=== PATIENT | female | born 1985 | race African-American/Black ===

== ENCOUNTER 2017-04-26 18:09 | Emergency (ER) | payer BC, MEDICAID ==
[~2017-04-26] VITALS: Ht 160 cm; Wt 72.0 kg
[2017-04-26 19:18] LABS: BASOPHILS % 1.7 % (0.0-2.0); EOSINOPHILS % 4.5 % (0.0-5.0); HEMATOCRIT. 34.6 % (36.0-48.0); HEMOGLOBIN. 11.6 g/dL (12.0-16.0); LYMPHOCYTES % 54.2 % (20.0-50.0); MEAN CORPUSCULAR HEMOGLOBIN 31.6 pg (28.0-32.0); MEAN CORPUSCULAR VOLUME 94.7 fL (81.0-99.0); MEAN PLATELET VOLUME 8.9 fl (7.4-10.4); MONOCYTES % 10.2 % (2.0-8.0); NEUTROPHILS % 29.4 % (40.0-76.0); PLATELET 269 x1000/uL (130-400); RED BLOOD CELL COUNT 3.66 mill/uL (4.2-5.4); RED CELL DISTRIBUTION WIDTH 12.6 % (11.6-14.6)
[2017-04-26 19:28] LABS: CLARITY URINE CLEAR (CLEAR); COLOR URINE DARK YELLOW (YELLOW); GLUCOSE URINE NEGATIVE (NEGATIVE); KETONES URINE TRACE (NEGATIVE); LEUKOCYTE ESTERASE URINE 1+ (NEGATIVE); NITRITE URINE NEGATIVE (NEGATIVE); OCCULT BLOOD URINE 2+ (NEGATIVE); PROTEIN URINE NEGATIVE (NEGATIVE); SPECIFIC GRAVITY URINE 1.019 (1.005-1.030)
[2017-04-26 19:30] LABS: CARBON DIOXIDE 26 mEq/L (21-32); CHLORIDE 110 mEq/L (98-107)
[2017-04-26 19:32] LABS: HCG SCREEN NEGATIVE
[2017-04-26] MEDS ORDERED: KETOROLAC 30MG/ML VIAL IM ONE (19:45)
[2017-04-26] MEDS ORDERED: KETOROLAC 30MG/ML VIAL IM NR (20:45)
[2017-04-26 22:46] VITALS: BP 114/50
== END 2017-04-26 22:51 | disposition home or self-care (01) ==
LOC: ER 19:45
DX: K80.20 Calculus of gallbladder without cholecystitis without obstruction (principal); R03.0 Elevated blood-pressure reading, without diagnosis of hypertension; F17.210 Nicotine dependence, cigarettes, uncomplicated; F12.90 Cannabis use, unspecified, uncomplicated; Z88.0 Allergy status to penicillin
CPT/HCPCS: 36415; 76700; 80053; 81001; 83690; 84703; 85025; 87077; 87086; 87186; 96372; 99285; J1885

== ENCOUNTER 2017-04-27 20:22 | Emergency (ER) | payer MEDICAID ==
[~2017-04-27] VITALS: Ht 160 cm; Wt 72.0 kg
[2017-04-28] MEDS ORDERED: ONDANSETRON HCL 4MG/2ML VIAL IV STA (00:11)
[2017-04-28] MEDS ORDERED: SODIUM CHLORIDE 0.9% 1,000 ML IV ONE (00:11)
[2017-04-28] MEDS ORDERED: KETOROLAC 30MG/ML VIAL IV STA (00:11)
[2017-04-28 01:06] LABS: BASOPHILS % 1.2 % (0.0-2.0); EOSINOPHILS % 3.9 % (0.0-5.0); HEMATOCRIT. 34.8 % (36.0-48.0); HEMOGLOBIN. 11.5 g/dL (12.0-16.0); LYMPHOCYTES % 56.1 % (20.0-50.0); MEAN CORPUSCULAR HEMOGLOBIN 31.9 pg (28.0-32.0); MEAN CORPUSCULAR VOLUME 96.2 fL (81.0-99.0); MEAN PLATELET VOLUME 9.3 fl (7.4-10.4); MONOCYTES % 9.2 % (2.0-8.0); NEUTROPHILS % 29.6 % (40.0-76.0); PLATELET 246 x1000/uL (130-400); RED BLOOD CELL COUNT 3.62 mill/uL (4.2-5.4); RED CELL DISTRIBUTION WIDTH 12.7 % (11.6-14.6)
[2017-04-28 01:10] LABS: CHLORIDE 109 mEq/L (98-107)
[2017-04-28 01:18] LABS: CARBON DIOXIDE 25 mEq/L (21-32)
[2017-04-28 04:07] VITALS: BP 111/65
== END 2017-04-28 04:05 | disposition home or self-care (01) ==
LOC: ER 20:58
DX: R10.11 Right upper quadrant pain (principal); R11.0 Nausea; F12.10 Cannabis abuse, uncomplicated; Z87.442 Personal history of urinary calculi; Z88.0 Allergy status to penicillin
CPT/HCPCS: 36415; 74176; 80053; 83690; 85025; 96361; 96374; 96375; 99285; J1885; J2405; J7030; Z7610

== ENCOUNTER 2017-07-12 04:49 | Emergency (ER) | payer MEDICAID | END 2017-07-12 06:48 | disposition left against medical advice (07) | LOC: ER 04:49 | DX: Z53.21 Procedure and treatment not carried out due to patient leaving prior to being seen by health care provider (principal) ==